=== PATIENT | male | born 1945 | race Caucasian/White ===

== ENCOUNTER 2021-12-19 10:44 | Day surgery (SDC) | payer MEDICARE, OTHER ==
[2021-12-19] VITALS (9 sets, daily range): BP systolic 118–149; BP diastolic 67–89
[~2021-12-19] VITALS: Ht 172.7 cm; Wt 95.1 kg
[2021-12-19] MEDS ORDERED: normal saline 1000ml 1,000 ML IV SCH ×2 (11:15→15:20)
[2021-12-19] MEDS ORDERED: ceFAZolin 2gm in dextrose, iso 50 ML IV ONE (11:15)
[2021-12-19 12:00] LABS: ANION GAP 6 (8-16); BLOOD UREA NITROGEN 13 MG/DL (7-18); BUN/CREATININE RATIO 13.4 (5.4-32.0); CALCIUM 9.2 MG/DL (8.5-10.1); CHLORIDE 103 MMOL/L (99-107); CREATININE 0.97 MG/DL (0.60-1.10); GLUCOSE 101 MG/DL (70-104); MAGNESIUM 2.3 MG/DL (1.5-2.4); SODIUM 138 MMOL/L (135-145); TOTAL CARBON DIOXIDE 28.7 MMOL/L (24-32); eGFR 75 ML/MIN
[2021-12-19 12:04] LABS: BASOPHILS % (AUTO) 0.7 % (0-1); EOSINOPHILS # (AUTO) 0.9 X10'3 (0-0.9); EOSINOPHILS % (AUTO) 14.2 % (0-6); HEMATOCRIT 44.6 % (42.0-52.0); LYMPHOCYTES # (AUTO) 1.3 X10'3 (1.1-4.8); LYMPHOCYTES % (AUTO) 20.2 % (21-51); MEAN CORPUSCULAR HEMOGLOBIN 32.3 PG (27.0-31.0); MEAN CORPUSCULAR HGB CONC 33.7 g/dL (33.0-36.5); MEAN CORPUSCULAR VOLUME 95.8 FL (78-98); MEAN PLATELET VOLUME 8.6 FL (7.4-10.4); MONOCYTES # (AUTO) 0.6 X10'3 (0-0.9); MONOCYTES % (AUTO) 10.1 % (2-12); NEUTROPHILS # (AUTO) 3.4 X10'3 (1.8-7.7); NEUTROPHILS % (AUTO) 54.8 % (42-75); PLATELET COUNT 145 X10'3 (140-440); RED BLOOD COUNT 4.65 X10'6 (4.70-6.10); RED CELL DISTRIBUTION WIDTH 13.1 % (11.5-14.5); WHITE BLOOD COUNT 6.2 X10'3 (4.5-11.0)
[2021-12-19] MEDS ORDERED: METF-1203 PO (12:26)
[2021-12-19] MEDS ORDERED: FURO20TA4 PO (12:27)
[2021-12-19] MEDS ORDERED: FLEC100T35 PO (12:27)
[2021-12-19] MEDS ORDERED: [UNRECOGNIZED DRUG - CODE] PO (12:27)
[2021-12-19] MEDS ORDERED: POTA10TA37 PO (12:27)
[2021-12-19] MEDS ORDERED: ROSU20TA31 PO (12:27)
[2021-12-19] MEDS ORDERED: TRAZ-251 PO (12:27)
[2021-12-19] MEDS ORDERED: ASPI-1265 PO (12:27)
[2021-12-19] MEDS ORDERED: ASCO-100 PO (12:27)
[2021-12-19] MEDS ORDERED: INUL1TAB4 PO (12:27)
[2021-12-19] MEDS ORDERED: CHOL100046 PO (12:27)
[2021-12-19] MEDS ORDERED: ZINC50TA67 PO (12:27)
[2021-12-19] MEDS ORDERED: BENA10TA75 PO (12:27)
[2021-12-19] MEDS ORDERED: vancomycin 1,000mg inj ONE (13:07)
[2021-12-19] MEDS ORDERED: midazolam 1 mg/ML 2ml injection ONE ×3 (13:07→14:20)
[2021-12-19] MEDS ORDERED: fentaNYL/PF 50MCG/1 ML 2ML syringe ONE (13:07)
[2021-12-19] MEDS ORDERED: LIDOcaine 1% w/EPI 1:100,000 30ml vial (MDV) ONE (13:39)
[2021-12-19] MEDS ORDERED: LIDOCAINE 1%/EPI 1:100,000 inj. 10 ML multi-dose vial ONE (13:44)
[2021-12-19] MEDS ORDERED: iohexol 350 MG/ML 50ML vial IV ONE (13:59)
[2021-12-19] MEDS ORDERED: HYDROcodone/acetaminophen 5mg/325mg tablet PO PRN (15:20)
[2021-12-19] MEDS ORDERED: HYDROcodone/acetaminophen 10/325mg tab PO PRN (15:20)
== END 2021-12-19 17:40 | disposition home or self-care (01) ==
LOC: SSTAY O 10:44
PROVIDERS: ATTEND Internal Medicine Cardiovascular Disease
DX: I49.5 Sick sinus syndrome (principal); I47.1 Supraventricular tachycardia; I10 Essential (primary) hypertension; E78.00 Pure hypercholesterolemia, unspecified; Z90.49 Acquired absence of other specified parts of digestive tract; Z98.890 Other specified postprocedural states; Z79.899 Other long term (current) drug therapy; Z79.82 Long term (current) use of aspirin
CPT/HCPCS: 33208; 36415; 71045; 80048; 82948; 83735; 85025; 85610; 93005; 99152; 99153; C1785; C1894; J0690; J2250; J3010; J3370; J3490; Q9967; A4620; A6258

== ENCOUNTER 2023-11-22 07:19 | Day surgery (SDC) | payer MEDICARE, OTHER ==
[~2023-11-22] VITALS: Ht 174 cm; Wt 97.7 kg
[~2023-11-22 07:19] MED LIST: ASCO-100 PO; ASPI-1265 PO; BENA10TA75 PO; CHOL100046 PO; FLEC100T35 PO; FURO20TA4 PO; INUL1TAB4 PO; METF-1203 PO; POTA-206 PO; ROSU20TA73 PO; TRAZ-251 PO; ZINC50TA67 PO; [UNRECOGNIZED DRUG - CODE] PO; cefazolin 2gm/D5W 100mL 100 ML IV ONE
[2023-11-22 08:00] VITALS: BP 150/93; PULSE 63; RESP 16; TEMP 98.7; O2SAT 96
[2023-11-22 08:06] LABS: BASOPHILS % (AUTO) 0.6 % (0-1); EOSINOPHILS # (AUTO) 0.3 X10'3 (0-0.9); EOSINOPHILS % (AUTO) 5.5 % (0-6); HEMATOCRIT 40.2 % (42.0-52.0); HEMOGLOBIN 13.5 g/dl (14.0-17.9); LYMPHOCYTES # (AUTO) 0.8 X10'3 (1.1-4.8); LYMPHOCYTES % (AUTO) 14.2 % (21-51); MEAN CORPUSCULAR HEMOGLOBIN 32.9 PG (27.0-31.0); MEAN CORPUSCULAR HGB CONC 33.5 g/dL (33.0-36.5); MEAN CORPUSCULAR VOLUME 98.2 FL (78-98); MONOCYTES # (AUTO) 0.5 X10'3 (0-0.9); MONOCYTES % (AUTO) 7.8 % (2-12); NEUTROPHILS # (AUTO) 4.3 X10'3 (1.8-7.7); NEUTROPHILS % (AUTO) 71.9 % (42-75); PLATELET COUNT 136 X10'3 (140-440); RED CELL DISTRIBUTION WIDTH 14.1 % (11.5-14.5); WHITE BLOOD COUNT 5.9 X10'3 (4.5-11.0)
[2023-11-22] MEDS ORDERED: AMI200T PO (08:13)
[2023-11-22 08:16] LABS: ALBUMIN 3.7 G/DL (3.4-5.0); ANION GAP 10 (8-16); BLOOD UREA NITROGEN 20 MG/DL (7-18); BUN/CREATININE RATIO 17.9 (10.0-20.0); CALCIUM 8.9 MG/DL (8.5-10.1); CHLORIDE 104 MMOL/L (99-107); CREATININE 1.12 MG/DL (0.60-1.10); GLUCOSE 117 MG/DL (70-104); MAGNESIUM 2.1 MG/DL (1.5-2.4); SODIUM 141 MMOL/L (135-145); TOTAL CARBON DIOXIDE 26.8 MMOL/L (24-32); eCRCL 52 ML/MIN; eGFR 63 ML/MIN
[2023-11-22 08:20] LABS: INR 1.1 INR; PROTHROMBIN TIME 12.1 SECONDS (9.0-12.0)
[2023-11-22] MEDS: normal saline 1000ml 1,000 ML IV SCH (08:23)
[2023-11-22] MEDS: vancomycin 1,500 MG in NS 300ml IV soln IV ONE (08:24)
[2023-11-22] MEDS ORDERED: vancomycin 1,000mg inj ONE (08:59)
[2023-11-22] MEDS ORDERED: fentaNYL/PF 50MCG/1 ML 2ML syringe ONE ×2 (08:59→11:10)
[2023-11-22] MEDS ORDERED: midazolam 1 mg/ML 2ml injection ONE ×4 (08:59→12:06)
[2023-11-22] MEDS ORDERED: LIDOCAINE 2%/EPI 1:100,000 inj. Multi-dose 20 ML VIAL ONE (08:59)
[2023-11-22] MEDS ORDERED: iohexol 350 MG/ML 50ML vial IV ONE (08:59)
[2023-11-22] MEDS ORDERED: iohexol 350MG/ML 100ml bottle IV ONE ×2 (09:32→11:06)
[2023-11-22 12:46] VITALS: BP 132/93; PULSE 61; RESP 16; O2SAT 92
[2023-11-22 13:00] VITALS: BP 141/93; PULSE 60; RESP 16; O2SAT 94
[2023-11-22 13:15] VITALS: BP 159/98; PULSE 60; RESP 16; O2SAT 94
[2023-11-22] MEDS ORDERED: normal saline 1000ml 1,000 ML IV SCH (13:15)
[2023-11-22 13:30] VITALS: BP 166/97; PULSE 60; RESP 16; O2SAT 94
[2023-11-22 14:00] VITALS: BP 142/92; PULSE 60; RESP 16; O2SAT 95
== END 2023-11-22 14:30 | disposition home or self-care (01) ==
LOC: SSTAY O 07:19
PROVIDERS: ATTEND Internal Medicine Cardiovascular Disease
DX: Z45.010 Encounter for checking and testing of cardiac pacemaker pulse generator [battery] (principal); I42.0 Dilated cardiomyopathy; I49.5 Sick sinus syndrome; I10 Essential (primary) hypertension; I42.7 Cardiomyopathy due to drug and external agent; I47.10 Supraventricular tachycardia, unspecified; E78.00 Pure hypercholesterolemia, unspecified; Z79.82 Long term (current) use of aspirin; Z79.899 Other long term (current) drug therapy; I45.89 Other specified conduction disorders
CPT/HCPCS: 33225; 33229; 36415; 80048; 83735; 85025; 85610; 93005; 99152; 99153; C1769; C1900; C2621; J2250; J3010; J3370; J7030; Q9967; 33215; 33221; 33228